=== PATIENT | female | born 1985 | race Caucasian/White ===

== ENCOUNTER → 2017-04-10 | Outpatient (REF) ==
[~2017-04-10] MED LIST: FERROUS SULFATE65 MG PO; IBU800 M1 PO; PEPCID AC 10MG10 MG PO; PRENATAL
== END ==
LOC: WSOH 07:54 → WSPT 09:15
DX: Z02.1 Encounter for pre-employment examination (principal)

== ENCOUNTER → 2017-04-12 | Outpatient (REF) | LOC: WSOH 10:00 | DX: Z02.89 Encounter for other administrative examinations (principal) ==

== ENCOUNTER → 2017-04-30 | Outpatient (REF) | LOC: WSOH 15:41 | DX: Z02.89 Encounter for other administrative examinations (principal) ==